=== PATIENT | male | born 1995 | race Hispanic/Latino ===

== ENCOUNTER 2017-12-01 20:16 | Emergency (ER) | payer OTHER, BC ==
[2017-12-01 21:14] VITALS: BP 129/68; PULSE 83; RESP 18; TEMP 98.1; O2SAT 99
--- NOTE | 2017-12-01 21:51 | ED PDOC ---
HPI: General Adult Time Seen by Provider: 12/01/17 21:26 Chief Complaint (Nursing): Trauma Chief Complaint (Provider): Head injury, no LOC History Per: Patient History/Exam Limitations: no limitations Onset/Duration Of Symptoms: Days Have you had recent travel within the past 21 days to any of the following countries: [place], [place], [place] or [place]?: No Current Symptoms Are (Timing): Still Present Additional Complaint(s): 22 yo male with no medical problems presents after fall at work. No LOC. No vomiting. Pt states he initially hed a headache but it when away. PT fell approx 6 hours [employer]. Tetanus UTD. Past Medical History Reviewed: Historical Data, Nursing Documentation, Vital Signs Vital Signs: Last Vital Signs Temp 98.1 F 12/01/17 21:08 Pulse 83 12/01/17 21:08 Resp 18 12/01/17 21:08 BP 129/68 12/01/17 21:08 Pulse Ox 99 12/01/17 21:08 - Medical History PMH: No Chronic Diseases - Surgical History Surgical History: No Surg Hx - Family History Family History: States: No Known Family Hx - Living Arrangements Living Arrangements: With Family - Social History Current smoker - smoking cessation education provided: No Alcohol: None Drugs: Denies - Allergies Allergies/Adverse Reactions: Allergies Allergy/AdvReac Type Severity Reaction Status Date / Time No Known Allergies Allergy Verified 12/01/17 21:08 Review of Systems ROS Statement: Except As Marked, All Systems Reviewed And Found Negative Constitutional: Negative for: Fever, Chills Skin: Positive for: Other (Laceration, left head ) Physical Exam - Reviewed Nursing Documentation Reviewed: Yes Vital Signs Reviewed: Yes - Physical Exam Appears: Positive for: Well, Non-toxic, No Acute Distress Head Exam: Positive for: ATRAUMATIC, NORMAL INSPECTION, NORMOCEPHALIC Skin: Positive for: Warm. 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 Negative for: Motor/Sensory Deficits - ECG O2 Sat by Pulse Oximetry: 99 Pulse Ox Interpretation: Normal Medical Decision Making Medical Decision Making: Wound irrigated. 2 jannie placed in scalp. Good wound closure. Disposition - Clinical Impression Clinical Impression: Head injury, Scalp laceration - Patient ED Disposition Is Patient to be Admitted: No Counseled Patient/Family Regarding: Diagnosis, Need For Followup - Disposition Disposition: Routine/Home Disposition Time: 21:52 Condition: STABLE Instructions: Laceration Repair With Jannie (DC)
== END 2017-12-01 23:25 | disposition home or self-care (01) ==
LOC: H.ER 20:16
DX: S01.01XA Laceration without foreign body of scalp, initial encounter (principal); W19.XXXA Unspecified fall, initial encounter; Y92.89 Other specified places as the place of occurrence of the external cause